=== PATIENT | male | born 1945 | race Asian ===

== ENCOUNTER → 2016-10-14 | Outpatient (CLI) | payer OTHER ==
[~2016-10-14] MED LIST: ALEN35TA PO; ASPI-996 PO; ENAL10TA PO; INSU100I21 SQ; METF10002 PO; OMEP20 PO; SIMV40TA5 PO
== END | disposition home or self-care (01) ==
LOC: RADPV 09:09
PROVIDERS: ATTEND Internal Medicine Cardiovascular Disease
DX: I50.1 Left ventricular failure, unspecified (principal); I51.7 Cardiomegaly; I37.1 Nonrheumatic pulmonary valve insufficiency
CPT/HCPCS: 93306